=== PATIENT | male | born 1960 | race Caucasian/White ===

== ENCOUNTER → 2024-06-07 16:49 | Outpatient (CLI) | payer OTHER, SELFPAY ==
--- NOTE | 2024-06-07 16:56 | DI.RAD.S_ITS ---
PROCEDURE: XR KNEE RT 3V INDICATIONS: Pain in right knee TECHNIQUE: 3 views of the knee were acquired. COMPARISON: None. FINDINGS: Bones: Mild degenerative changes. No displaced fracture or dislocation. Soft tissues: Small calcification adjacent to the lateral femoral epicondyle, age indeterminate. Small joint effusion. IMPRESSION: Mild degenerative changes. Small joint effusion. If there is high concern for further derangement, consider MRI evaluation. Dictated by: Figueroa Pollard M.D. on 06/08/2024 at 11:27 Approved by: Figueroa Pollard M.D. on 06/08/2024 at 11:28
== END ==
PROVIDERS: PCP Internal Medicine; Referring Provider Internal Medicine; Visit Provider Internal Medicine
DX: M25.461 Effusion, right knee (principal); M25.561 Pain in right knee
CPT/HCPCS: 73562